=== PATIENT | male | born 1965 | race Asian ===

== ENCOUNTER 2023-07-12 16:00 | Outpatient (CLI) | payer BC | END 2023-07-12 16:01 | disposition home or self-care (01) | LOC: SLEEPLAB 16:00 | PROVIDERS: ATTEND Internal Medicine | DX: G47.33 Obstructive sleep apnea (adult) (pediatric) (principal); G31.84 Mild cognitive impairment of uncertain or unknown etiology; R06.83 Snoring; R06.81 Apnea, not elsewhere classified | CPT/HCPCS: 95810 ==

== ENCOUNTER 2023-08-08 16:00 | Outpatient (CLI) | payer BC | END 2023-08-08 16:01 | disposition home or self-care (01) | LOC: SLEEPLAB 16:00 | PROVIDERS: ATTEND Internal Medicine | DX: G47.33 Obstructive sleep apnea (adult) (pediatric) (principal); G31.84 Mild cognitive impairment of uncertain or unknown etiology; R06.83 Snoring | CPT/HCPCS: 95811 ==